=== PATIENT | male | born 2000 | race Caucasian/White ===

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

== ENCOUNTER 2019-01-06 00:11 | Emergency (ER) | payer BC ==
[~2019-01-06] VITALS: Ht 170.2 cm; Wt 99.8 kg
[2019-01-06] MEDS ORDERED: HYDHCL25 PO (01:21)
== END 2019-01-06 01:52 | disposition home or self-care (01) ==
LOC: ER 00:11
DX: F32.9 Major depressive disorder, single episode, unspecified (principal); F41.9 Anxiety disorder, unspecified; F17.210 Nicotine dependence, cigarettes, uncomplicated
CPT/HCPCS: 99283

== ENCOUNTER → 2023-06-04 | Outpatient (CLI) | payer BC ==
[~2023-06-04] MED LIST changes: +HYDHCL25 PO
[2023-06-07 21:16] LABS: APTIMA MEDIA TYPE Urine; C. TRACHOMATIS BY TMA Negative (Negative); N. GONORRHOEAE BY TMA Negative (Negative); SPECIMEN SOURCE Urine
== END ==
LOC: LAB 13:50 → LAB SHORT 13:50
PROVIDERS: Emergency Medicine
DX: R30.0 Dysuria (principal)
CPT/HCPCS: 87086; 87491; 87591